=== PATIENT | female | born 1980 | race Caucasian/White ===

== ENCOUNTER 2018-10-11 06:37 | Emergency (ER) | payer OTHER ==
[~2018-10-11] VITALS: Ht 167.6 cm; Wt 121.4 kg
[~2018-10-11 06:37] MED LIST: CONCEPT OB PO; FLAGYL500 MG PO; GLYBURIDE5 M1 PO; NAPROSYN500 MG PO; TUBERSOL5 MG/0.1 M ID; [UNRECOGNIZED DRUG - OTHER] XX
[2018-10-11 07:26] LABS: IMMATURE GRANULOCYTES 0.3 % (0.0-5.0); MEAN CELL VOLUME 92.6 fL CALC (80.0-100.0); MEAN CORPUSCULAR HGB 30.2 pG CALC (26.0-32.0); MEAN CORPUSCULAR HGB CONC 32.6 g/L CALC (32.0-36.0); NEUT# 8.72 thou/uL (2.00-7.15); RED BLOOD COUNT 4.17 mill/uL (4.20-5.60); RED CELL DISTRI WIDTH 12.2 % (11.5-15.5)
[2018-10-11 07:27] LABS: URINE BILIRUBIN - DIPSTICK NEGATIVE (NEGATIVE); URINE BLOOD DIPSTICK MODERATE (NEGATIVE); URINE COLOR YELLOW; URINE GLUCOSE - DIPSTICK NEGATIVE (NEGATIVE); URINE KETONE NEGATIVE (NEGATIVE); URINE NITRITE - DIPSTICK NEGATIVE (Negative); URINE PH 5.5 (4.5-8.0); URINE PROTEIN - DIPSTICK TRACE mg/dL (NEG-TRACE); URINE SPECIFIC GRAVITY >=1.030; URINE UROBILINOGEN - DIPSTICK 0.2 E.U./dL (0.2)
[2018-10-11 07:28] LABS: HEMATOCRIT 38.6 % (37.0-47.0); HEMOGLOBIN 12.6 g/dl (12.0-16.0)
[2018-10-11 07:29] LABS: URINE LEUK ESTERASE SMALL (NEGATIVE)
[2018-10-11 07:36] LABS: URINE BACTERIA FEW hpf; URINE MUCUS RARE hpf (NONE-FEW); URINE SQUAMOUS EPITHELIAL CELL FEW EPI/hpf (0-FEW); URINE WBC 50-100 WBC/hpf (0-5)
[2018-10-11 07:45] LABS: BILIRUBIN, TOTAL 0.6 mg/dL (0.0-1.4); BUN 12 mg/dL (7-17); BUN/CREATININE RATIO 21 (12-20 (CALC)); CHLORIDE 105 mmol/l (95-108); CREATININE 0.6 mg/dL (0.5-1.0); GFR > 60 ML/MIN (>=60 (CALC)); GFR FOR AFR.AMER. > 60 ML/MIN (>=60 (CALC)); POTASSIUM 4.1 mmol/l (3.5-5.1); SGOT/AST 24 u/l (14-36); SODIUM 140 mmol/l (137-146); TOTAL PROTEIN 7.2 g/dL (6.3-8.2)
[2018-10-11] MEDS ORDERED: PERCOCET1 TA2 PO (08:14)
[2018-10-11] MEDS ORDERED: TAMSULOSIN0.4 MG PO (08:14)
[2018-10-11 08:24] LABS: ALBUMIN 4.2 g/dL (3.2-5.0); ALKALINE PHOSPHATASE 76 u/l (38-126); ANION GAP 14 (6-22 (CALC)); CARBON DIOXIDE 25 mmol/l (22-30)
[2018-10-11] MEDS ORDERED: KEFLEX500 M1 PO (08:46)
[2018-10-11 08:53] VITALS: BP 108/69
== END 2018-10-11 08:53 | disposition home or self-care (01) ==
LOC: ED 06:37
PROVIDERS: Emergency Medicine
DX: N20.0 Calculus of kidney (principal); N39.0 Urinary tract infection, site not specified

== ENCOUNTER 2019-08-19 | Emergency (ER) | payer MEDICAID ==
[~2019-08-19] MED LIST changes: +KEFLEX500 M1 PO; +PERCOCET1 TA2 PO; +TAMSULOSIN0.4 MG PO
[2019-08-19 21:28] LABS: URINE BILIRUBIN - DIPSTICK NEGATIVE (NEGATIVE); URINE BLOOD DIPSTICK TRACE-INTACT (NEGATIVE); URINE COLOR YELLOW; URINE GLUCOSE - DIPSTICK 100 mg/dL (NEGATIVE); URINE KETONE NEGATIVE (NEGATIVE); URINE PH 7.5 (4.5-8.0); URINE PROTEIN - DIPSTICK NEGATIVE (NEG-TRACE); URINE UROBILINOGEN - DIPSTICK 0.2 E.U./dL (0.2)
[2019-08-19 21:29] LABS: HEMATOCRIT 37.7 % (37.0-47.0); HEMOGLOBIN 12.1 g/dl (12.0-16.0); IMMATURE GRANULOCYTES 0.2 % (0.0-5.0); MEAN CELL VOLUME 93.3 fL CALC (80.0-100.0); MEAN CORPUSCULAR HGB CONC 32.1 g/L CALC (32.0-36.0); NEUT# 5.87 thou/uL (2.00-7.15); RED BLOOD COUNT 4.04 mill/uL (4.20-5.60)
[2019-08-19 21:34] LABS: URINE LEUK ESTERASE MODERATE (NEGATIVE); URINE NITRITE - DIPSTICK POSITIVE (Negative)
[2019-08-19 21:35] LABS: URINE BACTERIA MANY hpf; URINE EPITHELIAL CELLS MODERATE EPI/hpf (0-FEW); URINE RBC 0-2 RBC/hpf (0-5)
[2019-08-19 21:39] LABS: BARBITURATES NEGATIVE (NEGATIVE); COCAINE NEGATIVE (NEGATIVE); METHADONE NEGATIVE (NEGATIVE); OXCYCODONE NEGATIVE (NEGATIVE); TETRAHYDROCANNABIONOL NEGATIVE (NEGATIVE); TRICYLIC ANTIDEPRESSANTS NEGATIVE (NEGATIVE)
[2019-08-19 21:55] LABS: ALBUMIN 3.7 g/dL (3.2-5.0); ALKALINE PHOSPHATASE 58 u/l (38-126); ANION GAP 10 (6-22 (CALC)); BILIRUBIN, TOTAL 0.4 mg/dL (0.0-1.4); BUN 8 mg/dL (7-17); BUN/CREATININE RATIO 14 (12-20 (CALC)); CARBON DIOXIDE 27 mmol/l (22-30); CHLORIDE 107 mmol/l (95-108); CREATININE 0.5 mg/dL (0.5-1.0); GFR > 60 ML/MIN (>=60 (CALC)); GFR FOR AFR.AMER. > 60 ML/MIN (>=60 (CALC)); POTASSIUM 3.6 mmol/l (3.5-5.1); SGOT/AST 28 u/l (14-36); SODIUM 140 mmol/l (137-146); TOTAL PROTEIN 6.8 g/dL (6.3-8.2)
[2019-08-19 22:05] LABS: MYOGLOBIN 15 ng/mL (0 - 62)
[2019-08-19 22:28] LABS: TSH, 3RD GENERATION 1.93 uIU/mL (0.47 - 4.68)
[2019-08-19] MEDS ORDERED: BACTRIM DS1 TAB PO ×2 (23:01)
== END 2019-08-19 23:09 | disposition home or self-care (01) ==
PROVIDERS: Family Medicine
DX: N39.0 Urinary tract infection, site not specified (principal); B96.4 Proteus (mirabilis) (morganii) as the cause of diseases classified elsewhere

== ENCOUNTER 2019-12-10 16:11 | Emergency (ER) | payer MEDICAID ==
[~2019-12-10] VITALS: Ht 167.6 cm; Wt 117.0 kg
[~2019-12-10 16:11] MED LIST changes: +BACTRIM DS1 TAB PO
[2019-12-10 18:14] LABS: HEMOGLOBIN 12.7 g/dl (12.0-16.0); IMMATURE GRANULOCYTES 0.4 % (0.0-5.0); MEAN CELL VOLUME 90.7 fL CALC (80.0-100.0); MEAN CORPUSCULAR HGB 29.5 pG CALC (26.0-32.0); MEAN CORPUSCULAR HGB CONC 32.6 g/dL CAL (32.0-36.0); NEUT# 5.27 thou/uL (2.00-7.15); RED BLOOD COUNT 4.3 mill/uL (4.20-5.60); RED CELL DISTRI WIDTH 12.9 % (11.5-15.5)
[2019-12-10 18:30] LABS: ALKALINE PHOSPHATASE 71 u/l (38-126); AMYLASE 47 u/l (30-110); ANION GAP 10 (6-22 (CALC)); BILIRUBIN, TOTAL 0.5 mg/dL (0.0-1.4); BUN 6 mg/dL (7-17); BUN/CREATININE RATIO 11 (12-20 (CALC)); CARBON DIOXIDE 25 mmol/l (22-30); CHLORIDE 105 mmol/l (95-108); CREATININE 0.6 mg/dL (0.5-1.0); GFR > 60 ML/MIN (>=60 (CALC)); GFR FOR AFR.AMER. > 60 ML/MIN (>=60 (CALC)); LIPASE 57 u/l (23-300); POTASSIUM 4.1 mmol/l (3.5-5.1); SGOT/AST 47 u/l (14-36); SODIUM 136 mmol/l (137-146); TOTAL PROTEIN 7.5 g/dL (6.3-8.2)
[2019-12-10] MEDS ORDERED: ONDANSETRON4 MG PO (18:41)
[2019-12-10 18:54] VITALS: BP 132/80
== END 2019-12-10 18:55 | disposition home or self-care (01) ==
LOC: ED 16:11
PROVIDERS: Emergency Medicine
DX: R42 Dizziness and giddiness (principal); R19.7 Diarrhea, unspecified; R11.2 Nausea with vomiting, unspecified; Z20.828 Contact with and (suspected) exposure to other viral communicable diseases